=== PATIENT | female | born 1985 | race Caucasian/White ===

== ENCOUNTER 2019-02-16 21:28 | Emergency (ER) | payer BC ==
[~2019-02-16] VITALS: Ht 175.3 cm; Wt 86.2 kg
--- NOTE | 2019-02-16 22:12 | PHYS DOC ---
Past History Past Medical History: No Pertinent History Alcohol Use: None Drug Use: None Adult General Chief Complaint Chief Complaint: VAGINAL BLEEDING HPI HPI 33-year-old female presents with vaginal bleeding and . She is 9 or 10 weeks . She had some light spotting yesterday along with some abdominal cramping. She was not overly concerned. Today she has had more spotting and actually had a couple of clots this evening. She decided she should have this evaluated. She is not having significant cramping today. She's had no difficulty with pregnancies in the past. She did have a complication with her last delivery requiring balloon tamponade on for uterine hemorrhage. She denies fever or chills. She has no other complaints at this time. Patient did have an ultrasound at 8 weeks showing a single intrauterine baby with adequate heart rate. Review of Systems Review of Systems Constitutional: Denies fever or chills [] Eyes: Denies change in visual acuity, redness, or eye pain [] HENT: Denies nasal congestion or sore throat [] Respiratory: Denies cough or shortness of breath [] Cardiovascular: No additional information not addressed in HPI [] GI: Denies abdominal pain, nausea, vomiting, bloody stools or diarrhea [] : Vaginal bleeding[] Musculoskeletal: Denies back pain or joint pain [] Integument: Denies rash or skin lesions [] Neurologic: Denies headache, focal weakness or sensory changes [] Endocrine: Denies polyuria or polydipsia [] All other systems were reviewed and found to be within normal limits, except as documented in this note. Physical Exam Physical Exam Constitutional: Well developed, well nourished, no acute distress, non-toxic appearance. [] HENT: Normocephalic, atraumatic, bilateral external ears normal, oropharynx moist, no oral exudates, nose normal. [] Eyes: PERRLA, EOMI, conjunctiva normal, no discharge. [] Neck: Normal range of motion, no tenderness, supple, no stridor. [] Cardiovascular:Heart rate regular rhythm, no murmur [] Lungs & Thorax: Bilateral breath sounds clear to auscultation [] Abdomen: Bowel sounds normal, soft, no tenderness, no masses, no pulsatile masses. [] Skin: Warm, dry, no erythema, no rash. [] Back: No tenderness, no CVA tenderness. [] Extremities: No tenderness, no cyanosis, no clubbing, ROM intact, no edema. [] Neurologic: Alert and oriented X 3, normal motor function, normal sensory function, no focal deficits noted. [] Psychologic: Affect normal, judgement normal, mood normal. [] Current Patient Data Vital Signs Vital Signs Date Time Temp Pulse Resp B/P (MAP) Pulse Ox O2 Delivery O2 Flow Rate FiO2 02/16/19 21:35 98.4 85 16 98 Room Air EKG EKG [] Radiology/Procedures Radiology/Procedures [] Impressions: Exam: Ultrasound OB less than 14 weeks Indication: Abdominal pain Technique: Real-time grayscale and color Doppler images of the pelvis were obtained by the department terminal make up operator. Comparisons: None FINDINGS: Uterus measures 12.0 x 7.8 x 5.6 cm. Endometrium measures 7 mm in thickness. There is mild heterogeneity of the endocervical canal the lower uterine segment. Right ovary measures 3.6 x 2.7 x 2.4 cm. Within the right ovary there is a hyperechoic lesion measuring up to 1.7 cm, likely dermoid. Left ovary measures 3.6 x 2.9 x 2.0 cm. Trace free fluid. IMPRESSION: No pole, gestational sac yolk sac identified. Intrauterine is not confirmed. Differential considerations include an early IUP, failed IUP or nonvisualized ectopic . Recommend correlation with serial beta hCGs and short-term follow-up ultrasound. Electronically signed by: Cyndi Peralta MD (02/16/2019 11:48 PM) [facility] DICTATED AND SIGNED BY: CYNDI PERALTA MD DATE: 02/16/19 9218 CC: IRIS RODRIGUEZ DO; PCP,NO ~ Course & Med Decision Making Course & Med Decision Making Pertinent Labs and Imaging studies reviewed. (See chart for details) The patient's labs are unremarkable. Her OB ultrasound shows no viable fetus at this time. His report for more details. Her beta hCG is 2975. This appears to be a spontaneous . I have advised the patient follow up with her JOGGER OPERATOR for serial beta hCG levels. She is stable for discharge at this time. [] Dragon Disclaimer Dragon Disclaimer This electronic medical record was generated, in whole or in part, using a voice recognition dictation system. Departure Departure: Impression: Primary Impression: Spontaneous in first trimester Disposition: HOME, SELF-CARE Condition: STABLE Referrals: PCP,NO (PCP) Patient Instructions: IRIS Daigle DO Feb 16, 2019 22:12
[2019-02-16 22:20] LABS: BASO # 0.1 x10^3/uL (0.0-0.2); BASO % 1 % (0-3); EOS # 0.1 x10^3/uL (0.0-0.7); EOS % 1 % (0-3); HEMATOCRIT 41.8 % (36.0-47.0); HEMOGLOBIN 13.8 g/dL (12.0-15.5); LYMPH # 2.1 x10^3/uL (1.0-4.8); LYMPH % 23 % (24-48); MEAN CORPUSCULAR HEMOGLOBIN 31 pg (25-35); MEAN CORPUSCULAR HGB CONC 33 g/dL (31-37); MEAN CORPUSCULAR VOLUME 93 fL (79-100); MONO # 0.5 x10^3/uL (0.0-1.1); MONO % 5 % (0-9); NEUT # 6.3 x10^3uL (1.8-7.7); NEUT % 70 % (31-73); PLATELET COUNT 214 x10^3/uL (140-400); RED BLOOD COUNT 4.52 x10^6/uL (3.50-5.40); RED CELL DISTRIBUTION WIDTH 13.1 % (11.5-14.5); WHITE BLOOD COUNT 9.1 x10^3/uL (4.0-11.0)
[2019-02-16 22:31] LABS: CALCIUM 8.8 mg/dL (8.5-10.1); CREATININE 0.7 mg/dL (0.6-1.0); POTASSIUM 3.7 mmol/L (3.5-5.1)
[2019-02-16 22:37] LABS: ALBUMIN 3.9 g/dL (3.4-5.0); ALBUMIN/GLOBULIN RATIO 1.1 (1.0-1.7); TOTAL BILIRUBIN 0.2 mg/dL (0.2-1.0); TOTAL PROTEIN 7.4 g/dL (6.4-8.2)
--- NOTE | 2019-02-16 23:51 | RAD ---
Exam: Ultrasound OB less than 14 weeks Indication: Abdominal pain Technique: Real-time grayscale and color Doppler images of the pelvis were obtained by the department vegetable washer. Comparisons: None FINDINGS: Uterus measures 12.0 x 7.8 x 5.6 cm. Endometrium measures 7 mm in thickness. There is mild heterogeneity of the endocervical canal the lower uterine segment. Right ovary measures 3.6 x 2.7 x 2.4 cm. Within the right ovary there is a hyperechoic lesion measuring up to 1.7 cm, likely dermoid. Left ovary measures 3.6 x 2.9 x 2.0 cm. Trace free fluid. IMPRESSION: No pole, gestational sac yolk sac identified. Intrauterine is not confirmed. Differential considerations include an early IUP, failed IUP or nonvisualized ectopic . Recommend correlation with serial beta hCGs and short-term follow-up ultrasound. Electronically signed by: Rahat Pascal MD (02/16/2019 11:48 PM) [facility]
[2019-02-16 23:57] VITALS: BP 109/76
== END 2019-02-17 00:35 | disposition home or self-care (01) ==
LOC: ER 21:28
DX: O03.9 Complete or unspecified spontaneous abortion without complication (principal)
CPT/HCPCS: 36415; 76801; 76817; 80053; 84702; 85025; 99285